=== PATIENT | female | born 1940 | race Caucasian/White ===

== ENCOUNTER → 2017-07-21 | Outpatient (CLI) | payer BC ==
--- NOTE | 2017-07-31 12:04 | SLEEP ---
[address] [address] SLEEP STUDY REPORT Name: EDITH ANTHONY [facility] [id number] Admission: 07/21/17 Attend Phys: Sheyla Guevara DO Discharge: Date of : 42 Report #: [id number] THIS REPORT FOR: //name// CC: Sheyla Guevara This study has been reviewed in its entirety by a board certified sleep specialist DATE OF SERVICE: 07/21/2017 REQUESTING PHYSICIAN: Dr. Sheyla Guevara. A home sleep study was performed. Study was done for complaints of daytime sleepiness. She has had witnessed apneic episodes. Weight was not provided by the reprographics technician. Prior records indicate she had a weight of 245 pounds with a BMI of 47.9. Home study was performed. The total recording time was 446 minutes. During this study, there were total of 25 central apneas, 24 obstructive apneas and 118 hypopneas. She spent the entire night in the right lateral position. Resultant apnea-hypopnea index was 27. Lowest observed O2 saturation was 64%. 36 minutes total was spent with O2 saturations of less than 90%. Heart rate varied approximately beats per minute. IMPRESSION: 1. Home study does reveal evidence of significant sleep apnea. Both obstructive and central noted. These events also associated with desaturation. 2. Elevated body mass index. RECOMMENDATIONS: 1. Given abnormalities, I would suggest titration for CPAP and/or BiPAP to the Sleep Lab. Given the large number of central apneas, BiPAP may be beneficial. 2. Continue with a medically supervised weight loss program in order to achieve and maintain ideal body weight. <ELECTRONICALLY SIGNED> By: Kait Justice MD 07/31/17 [id number] Justice MD /nt
== END ==
LOC: M.SLEEPLAB 09:00
DX: G47.30 Sleep apnea, unspecified (principal); K21.9 Gastro-esophageal reflux disease without esophagitis; I10 Essential (primary) hypertension; E78.5 Hyperlipidemia, unspecified

== ENCOUNTER → 2017-07-23 | Outpatient (CLI) | payer BC | LOC: M.RAD 08:50 | DX: Z12.31 Encounter for screening mammogram for malignant neoplasm of breast (principal) ==

== ENCOUNTER → 2018-10-06 | Outpatient (CLI) | payer BC | LOC: M.RAD 12:43 | DX: N64.89 Other specified disorders of breast (principal); N64.59 Other signs and symptoms in breast; Z90.12 Acquired absence of left breast and nipple ==

== ENCOUNTER → 2019-12-07 | Outpatient (CLI) | payer BC | LOC: M.RAD 13:34 | PROVIDERS: ATTEND Family Medicine | DX: Z12.31 Encounter for screening mammogram for malignant neoplasm of breast (principal) ==

== ENCOUNTER → 2021-01-04 | Outpatient (CLI) | payer BC | LOC: M.RAD 12:52 | PROVIDERS: ATTEND Family Medicine | DX: Z12.31 Encounter for screening mammogram for malignant neoplasm of breast (principal) ==